=== PATIENT | female | born 1990 | race Caucasian/White ===

== ENCOUNTER 2017-02-14 23:32 | Emergency (ER) | payer SELFPAY ==
[2017-02-15 00:29] LABS: BASOPHIL % 0.3 % (0-2); CALCIUM 8.5 mg/dL (8.5-10.1); CARBON DIOXIDE 23.5 mmol/L (21-32); CHLORIDE SERUM 103 mmol/L (98-107); CREATININE SERUM 0.7 mg/dL (0.6-1.0); GFR1 > 60 mL/min; GLUCOSE SERUM 93 mg/dL (74-106); PLATELET COUNT 284 x10^3mcL (130-400); SODIUM SERUM 137 mmol/L (136-145)
[2017-02-15 00:32] LABS: RED CELL DISTRIBUTION WIDTH 15.5 % (11.5-14.5)
[2017-02-15 00:34] LABS: ALKALINE PHOSPHATASE 146 U/L (46-116); ALT/SGPT 11 U/L (14-59); AMYLASE 59 U/L (25-115); AST/SGOT 17 U/L (15-37); BILIRUBIN TOTAL 0.4 mg/dL (0.20-1.00); LIPASE 211 IU/L (73-393); TOTAL PROTEIN, SERUM 7.1 g/dL (6.4-8.2)
[2017-02-15 00:38] LABS: ALBUMIN 2.6 g/dL (3.4-5.0)
[2017-02-15 01:29] VITALS: BP 109/70
== END 2017-02-15 01:29 | disposition short-term general hospital (02) ==
LOC: ED 23:32
PROVIDERS: Specialist
DX: O26.893 Other specified pregnancy related conditions, third trimester (principal); Z3A.40 40 weeks gestation of pregnancy; M54.5 Low back pain; R10.2 Pelvic and perineal pain
CPT/HCPCS: 36415; Q0092

== ENCOUNTER 2017-12-16 17:09 | Emergency (ER) | payer SELFPAY ==
[~2017-12-16] VITALS: Ht 160 cm; Wt 62.1 kg
[2017-12-16 17:13] VITALS: Ht 160 cm; Wt 62.1 kg
[2017-12-16 19:42] VITALS: BP 108/54
== END 2017-12-16 20:02 | disposition home or self-care (01) ==
LOC: ED 17:09
DX: J03.90 Acute tonsillitis, unspecified (principal); R53.1 Weakness; R11.10 Vomiting, unspecified
CPT/HCPCS: J0696; J1885